=== PATIENT | female | born 1950 | race Caucasian/White ===

== ENCOUNTER → 2017-02-23 | Outpatient (CLI) | payer OTHER ==
[2013-10-19 11:19] VITALS: BP 109/58
--- NOTE | 2017-02-23 17:39 | RAD ---
HISTORY: Pain Study: Right shoulder series Comparison: None Findings: There is moderate severe narrowing of the glenohumeral joint with prominent osteophytes along the hu meral head inferiorly. There are mild hypertrophic changes of the AC joint. No fracture or dislocati on is seen. The bones are osteopenic. The soft tissues are normal. IMPRESSION: Severe osteoarthritic changes along the glenohumeral joint and diffuse osteopenia with no acute bony abnormality seen. Reported By:
== END ==
LOC: SPEECH 14:28
PROVIDERS: ATTEND Orthopaedic Surgery
DX: M25.511 Pain in right shoulder (principal)
CPT/HCPCS: 73030

== ENCOUNTER → 2017-09-20 | Outpatient (CLI) | payer OTHER ==
[2013-10-19 11:19] VITALS: BP 109/58
--- NOTE | 2017-09-22 17:19 | MG ---
HISTORY: SCREENING Comparison: Multiple priors dating back to October 03, 2008 FINDINGS: Bilateral CC and MLO projections of the right and left breast were obtained. Heterogeneously dense f ibroglandular tissue is seen to be present without significant interval change. No suspicious anthony ectural distortion, mass or clustered microcalcifications can be observed to suggest malignancy. No skin thickening or nipple retraction is appreciated. No pathological lymphadenopathy can be identif ied. Benign-appearing calcifications are noted within the right and left breast. IMPRESSION: NO RADIOGRAPHIC EVIDENCE OF MALIGNANCY. ACR CATEGORY 2 - benign findings. FOLLOW-UP EXAM 1 YEAR. Diagnostic CAD was utilized and reviewed. * 0 (ZERO) - ASSESSMENT INCOMPLETE; ADDITIONAL IMAGING IS NEEDED. * 1/1 (ONE) - NEGATIVE. * 2/II (TWO) - BENIGN FINDINGS. * 3/III (THREE) - PROBABLY BENIGN FINDING; SHORT INTERVAL FOLLOW-UP SUGGESTED. * 4/IV (FOUR) - SUSPICIOUS ABNORMALITY; BIOPSY SHOULD BE CONSIDERED. * 5/V - HIGHLY SUSPICIOUS OF MALIGNANCY; BIOPSY SHOULD BE PERFORMED. A NEGATIVE X-RAY REPORT SHOULD NOT DELAY BIOPSY IF A DOMINANT OR CLINICALLY SUSPICIOUS MASS IS PRESENT; 4 TO 8 PERCENT OF CANCERS ARE NOT IDENTIFIED BY X-RAY. A NEGA TIVE REPORT MAY REINFORCE THE CLINICAL IMPRESSION. ADENOSIS AND DENSE BREASTS MAY OBSCURE AN UNDERLY ING NEOPLASM. Reported By:
== END ==
LOC: RAD 13:29
PROVIDERS: ATTEND Specialist
DX: Z12.31 Encounter for screening mammogram for malignant neoplasm of breast (principal)
CPT/HCPCS: 77067

== ENCOUNTER → 2017-10-08 | Outpatient (CLI) | payer OTHER ==
[2013-10-19 11:19] VITALS: BP 109/58
--- NOTE | 2017-10-08 12:10 | MRI ---
MRI right shoulder without contrast Indication: Shoulder pain, stiffness, decreased range of motion Comparison: Radiographs 02/23/2017. Technique: Multiplanar, multi sequence MR images of the right shoulder were obtained without contrast . Findings: Examination is limited by motion artifact and suboptimal positioning of the sagittal sequen reinier. No evidence for acute fracture or dislocation. There are moderate degenerative changes of the AC joint. Small amount of fluid is present within the subacromial/subdeltoid bursa. There is severe gle nohumeral degenerative disease with high-grade diffuse chondrosis and large marginal osteophytes. The re is a large glenohumeral joint effusion with dependent layering debris versus synovitis. There is a n 8 x 7 mm low signal round loose body within the posterior superior joint space (coronal T2 image 17 ). There is diffuse degenerative fraying of the labrum. Note is made of a multilocular cystic collect ion in the subcoracoid recess measuring 5.1 x 3.0 cm (image 25, series 901), most suggestive for exte nsion of the joint fluid, although large paralabral cyst is possible. The long head biceps tendon is grossly intact and normally positioned. There is tendinosis of the distal supraspinatus, infraspinatu s, and subscapularis tendons, with undersurface fraying, without evidence for large cuff tear or tend on retraction. No evidence for marked muscle atrophy about the shoulder. Impression: 1. Severe glenohumeral degenerative disease with large joint effusion and diffuse degenerative frayin g of the labrum. Subcentimeter osteochondral loose body within the posterior superior joint space. 2. Rotator cuff tendinosis without evidence for large cuff tear or tendon retraction. Subacromial/sub deltoid bursitis. 3. Moderate AC joint degenerative disease. Reported By:
== END | disposition home or self-care (01) | DRG 554 ==
LOC: RAD 09:20
PROVIDERS: ATTEND Orthopaedic Surgery
DX: M19.011 Primary osteoarthritis, right shoulder (principal); M75.51 Bursitis of right shoulder
CPT/HCPCS: 73221

== ENCOUNTER → 2017-10-27 | Outpatient (CLI) | payer OTHER ==
[2013-10-19 11:19] VITALS: BP 109/58
[2017-10-27 08:48] LABS: BASOPHILS % (AUTO) 0.9 % (0.2-1.0); EOSINOPHILS # (AUTO) 0.1 x10^3/uL (0.0-0.2); EOSINOPHILS % (AUTO) 1.9 % (0.9-2.9); HEMATOCRIT 38.4 % (36.0-47.0); HEMOGLOBIN 13.3 g/dL (12.0-16.0); LYMPHOCYTES # (AUTO) 1.4 X10^3/uL (1.3-2.9); LYMPHOCYTES % (AUTO) 29.7 % (21.0-51.0); MEAN CORPUSCULAR HEMOGLOBIN 30.8 pg (27.0-34.0); MEAN CORPUSCULAR HGB CONC 34.6 g/dL (33.0-35.0); MEAN CORPUSCULAR VOLUME 88.9 fL (80.0-100.0); MEAN PLATELET VOLUME 7.4 fL (7.4-11.0); MONOCYTES # (AUTO) 0.3 x10^3/uL (0.3-0.8); MONOCYTES % (AUTO) 7.4 % (0.0-13.0); NEUTROPHILS # (AUTO) 2.8 x10^3/uL (2.2-4.8); NEUTROPHILS % (AUTO) 60.1 % (42.0-75.0); PLATELET COUNT 285 X10^3/uL (150.0-450.0); RED BLOOD COUNT 4.32 X10^6/uL (3.5-5.4); RED CELL DISTRIBUTION WIDTH 12.8 % (11.6-16.5); WHITE BLOOD COUNT 4.7 X10^3/uL (3.6-10.0)
[2017-10-27 08:50] LABS: BILIRUBIN,URINE NEGATIVE (NEGATIVE); BLOOD/HEMOGLOBIN,URINE NEGATIVE (NEGATIVE); GLUCOSE, URINE NEGATIVE (NEGATIVE); KETONES,URINE NEGATIVE (NEGATIVE); LEUKOCYTE ESTERASE ,URINE 1+ (NEGATIVE); NITRITES,URINE NEGATIVE (NEGATIVE); PROTEIN,URINE NEGATIVE (NEGATIVE); UROBILINOGEN,URINE NORMAL (NORMAL)
[2017-10-27 08:59] LABS: APPEARANCE,URINE CLEAR (CLEAR); COLOR,URINE YELLOW (YELLOW); RBC,URINE NONE SEEN /HPF (NEGATIVE)
[2017-10-27 09:00] LABS: BACTERIA,URINE NEGATIVE /HPF (NEGATIVE); SQUAMOUS EPITHELIAL CELL,UR RARE /HPF (NEGATIVE)
[2017-10-27 09:05] LABS: ALANINE AMINOTRANSFERASE 24 Units/L (12-78); ALKALINE PHOSPHATASE 84 Units/L (46-116); ASPARTATE AMINO TRANSFERASE 23 Units/L (15-37); BLOOD UREA NITROGEN 7 mg/dL (7-18); CALCIUM 8.9 mg/dL (8.5-10.1); CARBON DIOXIDE 26.6 mmol/L (21-32); CHLORIDE 98 mmol/L (98-107); CREATININE 0.74 mg/dL (0.55-1.02); SODIUM 133 mmol/L (136-145); TOTAL PROTEIN 7.4 g/dL (6.4-8.2); eGFR BLACK RACES > 60 (>60); eGFR NON BLACK RACES > 60 (>60)
== END ==
LOC: LAB 08:01
PROVIDERS: ATTEND Orthopaedic Surgery Sports Medicine
DX: M19.011 Primary osteoarthritis, right shoulder (principal)
CPT/HCPCS: 36415; 80053; 81001; 85025; 87640; 87641